=== PATIENT | male | born 1965 | race African-American/Black ===

== ENCOUNTER 2018-08-29 19:49 | Emergency (ER) | payer OTHER ==
[~2018-08-29] VITALS: Ht 190.5 cm; Wt 156.0 kg
--- NOTE | ~2018-08-29 | EKG ---
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: W[place] : 1965 Requested By: John Head Order Number: [id number] MD: David Salcido Measurements Intervals [place] Rate: 102 P: 33 MO: 166 QRS: -19 QRSD: 100 T: 156 QT: 342 QTc: 446 Interpretive Statements Sinus tachycardia Ventricular premature complex LVH with secondary repolarization abnormality Baseline wander in lead(s) V2 No previous ECG available for comparison Electronically Signed On 08-30-2018 18:48:38 CDT by David Salcido [email or web address] ��������������������������������������������� ���������������������������������������� By: ��������������������������������������������� 51 51 David Salcido MD /EPI
[2018-08-29 19:51] VITALS: BP 151/86
[2018-08-29] MEDS ORDERED: HYDROCHLOROTH12.5 M1 PO (20:31)
--- NOTE | 2018-09-11 17:13 | EKG ---
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[place] : 1965 Requested By: John Head Order Number: [id number] MD: Omkar Menchaca Measurements Intervals [place] Rate: 102 P: 33 ND: 166 QRS: -19 QRSD: 100 T: 156 QT: 342 QTc: 446 Interpretive Statements Sinus tachycardia Ventricular premature complex LVH with secondary repolarization abnormality Baseline wander in lead(s) V2 No previous ECG available for comparison Electronically Signed On 08-30-2018 18:48:38 CDT by David Salcido Electronically Signed On 09-11-2018 17:12:50 CDT by Omkar Menchaca [email or web address] ��������������������������������������������� <ELECTRONICALLY SIGNED> ���������������������������������������� By: Omkar Menchaca MD ��������������������������������������������� 09/11/181711 51 51 Omkar Menchaca MD /EPI
== END 2018-08-29 20:42 | disposition home or self-care (01) ==
LOC: ER 19:49
DX: F41.9 Anxiety disorder, unspecified (principal); I10 Essential (primary) hypertension